=== PATIENT | female | born 1945 | race Caucasian/White ===

== ENCOUNTER → 2016-10-25 | Outpatient (CLI) | payer OTHER ==
[~2016-10-25] MED LIST: AMBEREN PO; ARIMIDEX PO; ASPIRIN EC81 M1 PO; BENADRYL25 MG PO; CALCITONIN NASAL; CALCITONIN-SALMON NASAL; CALCIUM 600 +1 EAC1 PO; FEXOFENADINE H180 MG PO; FLORINEF ACETA0.1 MG PO; LIPITOR 10 MG10 M1 PO; LOPRESSOR25 PO; MIACALCIN; MULTIVITAMINS PO; OMEPRAZOLE; PERCOCET 5-3251 EACH PO; ZANTAC
--- NOTE | ~2016-10-25 | 2DMMODE ---
[facility] [place] [address] 2 D/M-MODE ECHOCARDIOGRAM Name: JH BULL Room #: REG [facility]#: [id number] Admission: 10/25/16 Attend Phys: Diego Martinez MD Discharge: Date of : 45 Date of Service: 10/25/16 [facility] Report #: [id number] THIS REPORT FOR: //name// APPROVED REPORT Study performed: 10/25/2016 08:03:56 EXAM: Comprehensive 2D, Doppler, and color-flow Echocardiogram Patient Location: Out-Patient Room #: Echo lab Status: routine Other Information Study Quality: Good Risk Factors: Cardiac Risk Factors: Hyperlipidemia Indications CAD HLP, History of SVT. 2D Dimensions LVEF(%): 53.71 (>50%) IVSd: 9.60 (7-11mm) LVOT Diam: 16.94 (18-24mm) LVDd: 43.65 mm PWd: 10.76 (7-11mm) Ascending Ao: 32.32 (22-36mm) LVDs: 31.64 (25-40mm) Aortic Root: 32.02 mm IVC: 12.00 mm Mondragon's LVEF: 53.71 % Volumes Left Atrial Volume (Systole) Single Plane 4CH: 40.01 mL Single Plane 2CH: 32.15 mL LA ESV Index: 20.00 mL/m2 Aortic Valve AoV Peak Bj.: 1.37 m/s AO Peak Gr.: 7.52 mmHg LVOT Max P.89 mmHg LVOT Max V: 0.99 m/s ALLISON Vmax: 1.62 cm2 Mitral Valve E/A Ratio: 0.7 MV Decel. Time: 323.59 ms [facility] [email or web address] [place] [address] 2 D/M-MODE ECHOCARDIOGRAM Name: JH BULL Room #: [facility]#: [id number] Admission: 10/25/16 Attend Phys: Diego Martinez MD Discharge: Date of : 45 Date of Service: 10/25/16 1024 Report #: [id number] E Max Bj.: 0.43 m/s MV A Bj.: 0.64 m/s MV PHT: 93.84 ms IVRT: 152.25 ms Pulmonary Valve PV Peak Bj.: 0.73 m/s PV Peak Gr.: 2.11 mmHg Pulmonary Vein P Vein S: 0.51 m/s P Vein A: 0.28 m/s P Vein D: 0.32 m/s P Vein A Dur.: 92.3 msec P Vein S/D Ratio: 1.59 Tricuspid Valve RAP Estimate: 5.00 mmHg Left Ventricle The left ventricle is normal size. There is normal left ventricular wall thickness. The left ventricular systolic function is normal. The left ventricular ejection fraction is within the normal range. LVEF is 55-60%. Grade I - abnormal relaxation pattern. Right Ventricle The right ventricle is normal size. The right ventricular systolic function is normal. Atria The left atrium size is normal. The right atrium size is normal. Aortic Valve The aortic valve is normal in structure. Mild aortic regurgitation. There is no aortic valvular stenosis. Mitral Valve The mitral valve is normal in structure. Mild mitral regurgitation. No evidence of mitral valve stenosis. Tricuspid Valve The tricuspid valve is normal in structure. There is no tricuspid valve regurgitation noted. Pulmonic Valve The pulmonary valve is normal in structure. Trace pulmonic regurgitation. [facility] [address] [place] [address] 2 D/M-MODE ECHOCARDIOGRAM Name: JH BULL Room #: REG [facility]#: [id number] Admission: 10/25/16 Attend Phys: Diego Martinez MD Discharge: Date of : 45 Date of Service: 10/25/16 1024 Report #: [id number] Great Vessels The aortic root is normal in size. IVC is normal in size and collapses >50% with inspiration. Pericardium There is no pericardial effusion. <Conclusion> The left ventricle is normal size. The left ventricular systolic function is normal. The right ventricle is normal size. The left atrium size is normal. Mild aortic regurgitation. Mild mitral regurgitation. There is no pericardial effusion. <ELECTRONICALLY SIGNED> By: Diego Martinez MD 10/25/16 1024 1024 1024 Diego Martinez MD /INF
== END ==
LOC: CV 10-11 14:06
DX: I25.10 Atherosclerotic heart disease of native coronary artery without angina pectoris (principal); E78.5 Hyperlipidemia, unspecified

== ENCOUNTER → 2017-01-14 | Outpatient (CLI) | payer OTHER | LOC: RAD 04:07 | DX: Z12.31 Encounter for screening mammogram for malignant neoplasm of breast (principal) ==

== ENCOUNTER 2017-07-01 13:23 | Inpatient (IN) | payer OTHER ==
[~2017-07-01] VITALS: Ht 167.6 cm; Wt 86.2 kg
--- NOTE | ~2017-07-01 | EKG ---
[address] [place] [address] ELECTROCARDIOGRAM REPORT Name: JH BULL Room #: 204-P ADM IN M.R.#: [id number] Admission: 07/01/17 Attend Phys: Chauncey Woods DO Discharge: Date of : 45 Report #: [id number] THIS REPORT FOR: //name// [facility] ED Test Date: 2017-07-01 Test Time: 13:28:08 Pat Name: JH BULL Department: Room: 204 Gender: F Enterprise Sales Person: NATALIE : 1945 Requested By: Vivian Stern Order Number: [id number] MD: David Burns Measurements Intervals [place] Rate: 71 P: 29 CO: 176 QRS: 35 QRSD: 82 T: 12 QT: 399 QTc: 434 Interpretive Statements Sinus rhythm Compared to ECG 06/15/2012 17:56:56 No significant changes Electronically Signed On 07-02-2017 13:21:30 GROUP FITNESS ASSISTANT DEPARTMENT HEAD by David Burns [email or web address] <ELECTRONICALLY SIGNED> By: David Burns MD 07/02/17 1321 1328 27 David Burns MD /SADE
--- NOTE | ~2017-07-01 | CATHLAB ---
[facility] [address] [place] [address] INVASIVE PROCEDURE REPORT Name: JH BULL Room #: 204-P [facility] IN ..#: [id number] Admission: 07/01/17 Attend Phys: Chauncey Woods, Discharge: 07/03/17 Date of : 45 Date of Service: 07/04/17 0840 Report #: [id number] THIS REPORT FOR: //name// APPROVED REPORT Patient Details Patient Status: In-Patient Room #: The patient is a 71 year-old female Event Personnel Jaqueline Henning, Haris, Williams RN RN, Kirti Pollock RN RN, Annette Vargas Park, Jin Procurement Officer Procedures Performed Art Access - R femoral artery* Left Heart Cath w/or w/o Coronaries [id number] [facility] Hemostasis with Manual pressure 00403 Initial Mod Sed Same Phys/QHP Gr5y 198548 Indication Non-STEMI , Arrhythmia, Palpitations, Dyspnea, Chest pain Risk Factors Hypercholesterolemia, Coronary Artery DiseaseHypertension Procedure Narrative The patient was brought urgently to the Cardiac Catheterization Laboratory and was prepped and draped in a sterile manner. The Right Groin^ was infiltrated with 1% Lidocaine subcutaneous anesthesia. A PINNACLE 4FR Sheath #[id number] sheath was inserted into the RFA 4F^. Coronary angiography was performed using coronary diagnostic catheters. The right coronary system was accessed and visualized with a JR 4 catheter. The left coronary system was accessed and visualized with a JL 4 catheter. The left ventricle was accessed and visualized with a Pigtail catheter. Left ventricular/Aortic Valve gradient assessed via catheter pullback. Left ventriculogram was performed in JAIN projection. Hemostasis was obtained with manual pressure following sheath removal without any complications. The patient tolerated the procedure well and there were no complications associated with the procedure. There was no hematoma. Intraoperative Conscious Sedation Sedation start time: 09:09 Case end Time: : Fentanyl 25 mcg Versed [address] [address] INVASIVE PROCEDURE REPORT Name: JH BULL Room #: 204-P [facility] IN ..#: [id number] Admission: 07/01/17 Attend Phys: Chauncey Woods, Discharge: 07/03/17 Date of : 45 Date of Service: 07/04/17 0840 Report #: [id number] Fluoro Time: 1.53 minutes Dose: DAP 2464.50 cGycm2 313 mGy Contrast Type and Amount: Omnipaque 60 ml Coronary Angiography The patient's coronary anatomy is right dominant. Diagnostic Cath Left Main Large-caliber vessel, with no flow-limiting lesions. LAD Moderate size caliber vessel in the proximal segment with mild calcification. Mild disease is noted with a 30% stenosis. The mid and distal segments of the LAD artery tapers down to a small size caliber vessel. There is mild disease in the mid segment, 30%. Diagonal 1 Patent vessel, with no flow-limiting lesions. Circumflex Moderate size caliber vessel, supplies 2 obtuse marginal arteries. The proximal segment is mildly ectatic. OM1 Patent vessel, with no flow-limiting lesions. OM2 Patent vessel, with no flow-limiting lesions. Right Coronary Dominant vessel with a mild to moderate stenosis in the proximal segment, 30-40%. R PDA Patent vessel, with no flow-limiting lesions. RPLV Patent vessel, with no flow-limiting lesions. Left Ventriculography The left ventricle is normal in size with normal contractility. The left ventricular ejection fraction is estimated to be 55-60%. Hemodynamics The aortic pressure is 109/67 mmHg with a mean of 89 mmHg. The left ventricular pressure is 128/14 mmHg with a mean of mmHg. The left ventricular end diastolic pressure is 31 mmHg. Conclusion 1. Mild to moderate disease in the LAD and RCA. 2. Right dominant system. 3. Normal LV systolic function. 4. Recommend medical therapy. <ELECTRONICALLY SIGNED> By: Diego Martinez MD 07/04/17839 9 9 Diego Martinez MD /INF
--- NOTE | ~2017-07-01 | 2DMMODE ---
[facility] [address] [address] 2 D/M-MODE ECHOCARDIOGRAM Name: JH BULL Caleb Room #: 204-P [facility] IN .#: [id number] Admission: 07/01/17 Attend Phys: Chauncey Woods, Discharge: Date of : 45 Date of Service: 07/03/17 1349 Report #: [id number] THIS REPORT FOR: //name// APPROVED REPORT Study performed: 07/02/2017 11:28:08 EXAM: Comprehensive 2D, Doppler, and color-flow Echocardiogram Patient Location: Bedside Room #: 204 Status: on-call BSA: 1.96 HR: 87 bpm BP: 117/74 mmHg Rhythm: NSR Other Information Study Quality: Adequate Indications Chest Pressure CAD Elevated Troponin 2D Dimensions LVEF(%): 65.00 (>50%) IVSd: 8.51 (7-11mm) LVOT Diam: 17.00 (18-24mm) LVDd: 44.71 mm PWd: 10.03 (7-11mm) Ascending Ao: 34.06 (22-36mm) LVDs: 32.09 (25-40mm) Aortic Root: 25.25 mm LV Single Plane 4CH: 72.18 % LV Single Plane 2CH: 65.07 % Mondragon's LVEF: 68.63 % Biplane EF: 68.7 % Volumes Left Atrial Volume (Systole) Single Plane 4CH: 46.06 mL Single Plane 2CH: 58.35 mL LA ESV Index: 29.00 mL/m2 Aortic Valve AoV Peak Bj.: 1.53 m/s AO Peak Gr.: 9.36 mmHg LVOT Max P.44 mmHg LVOT Max V: 1.05 m/s ALLISON Vmax: 1.55 cm2 [facility] [place] [address] 2 D/M-MODE ECHOCARDIOGRAM Name: JH BULL Room #: 204-P [facility] IN M.R.#: [id number] Admission: 07/01/17 Attend Phys: Chauncey Woods, Discharge: Date of : 45 Date of Service: 07/03/17 1349 Report #: [id number] Mitral Valve E/A Ratio: 1.6 MV Decel. Time: 337.24 ms MV E Max Bj.: 0.78 m/s MV A Bj.: 0.49 m/s MV PHT: 97.80 ms IVRT: 69.20 ms Pulmonary Valve PV Peak Bj.: 0.76 m/s PV Peak Gr.: 2.30 mmHg Pulmonary Vein P Vein S: 0.42 m/s P Vein A: 0.27 m/s P Vein D: 0.50 m/s P Vein A Dur.: 152.2 msec P Vein S/D Ratio: 0.84 Left Ventricle The left ventricle is normal size. There is normal LV segmental wall motion. There is normal left ventricular wall thickness. Left ventricular systolic function is normal. The left ventricular ejection fraction is within the normal range. LVEF is 60-65%. The left ventricular diastolic function is normal. Right Ventricle The right ventricle is normal size. The right ventricular systolic function is normal. Atria The left atrium size is normal. The right atrium size is normal. Aortic Valve The aortic valve is normal in structure. Mild aortic regurgitation. There is no aortic valvular stenosis. Mitral Valve The mitral valve is normal in structure. Mild mitral regurgitation. No evidence of mitral valve stenosis. Tricuspid Valve The tricuspid valve is normal in structure. There is no tricuspid valve regurgitation noted. Pulmonic Valve The pulmonary valve is normal in structure. Trace pulmonic [facility] [address] [place] [address] 2 D/M-MODE ECHOCARDIOGRAM Name: JH BULL Room #: 204-P [facility] IN [facility]#: [id number] Admission: 07/01/17 Attend Phys: Chauncey Woods, Discharge: Date of : 45 Date of Service: 07/03/17 1349 Report #: [id number] regurgitation. Great Vessels The aortic root is normal in size. IVC is normal in size and collapses with >50% inspiration Pericardium There is no pericardial effusion. <Conclusion> The left ventricle is normal size. LVEF is 60-65%. The left ventricular diastolic function is normal. The right ventricle is normal size. The left atrium size is normal. The aortic valve is normal in structure. Mild mitral regurgitation. There is no tricuspid valve regurgitation noted. IVC is normal in size and collapses with >50% inspiration There is no pericardial effusion. <ELECTRONICALLY SIGNED> By: Jesus Claros MD, FACC 07/03/17 1349 1349 1349 Jesus Claros MD, FACC /INF
--- NOTE | ~2017-07-01 | HC ---
[facility] [place] [address] CONSULTATION Name: JH BULL Room #: 204-P [facility] IN M.R.#: [id number] Admission: 07/01/17 Attend Phys: Chauncey Woods DO Discharge: 07/03/17 Date of : 45 Report #: [id number] THIS REPORT FOR: //name// CC: Chauncey Fernandes REASON FOR CONSULTATION: SVT. HISTORY OF PRESENT ILLNESS: The patient is a 71-year-old with a history of SVT and vasovagal syncope and nonobstructive coronary artery disease who was at [facility] and started having SVT. Her heart rate was very rapid, she could not take her pulse. She then called an ambulance from home and they brought her in. By that time, she was in sinus rhythm. She was noted to have an elevated troponin and therefore, Dr. Martinez took her for cardiac catheterization, which showed some nonobstructive disease and no interventions were performed. The patient reports she has been having increased episodes of SVT. I did review a 12-lead EKG from the medical record that clearly shows supraventricular tachycardia with no discernible P waves consistent with AV nova reentrant tachycardia. Her resting EKG shows normal sinus rhythm with no manifest of preexcitation. PAST MEDICAL HISTORY: As above. SOCIAL HISTORY: Does not smoke. FAMILY HISTORY: Noncontributory. ALLERGIES: None. REVIEW OF SYSTEMS: A 12-point review of systems was performed and was negative other than what I mentioned above. PHYSICAL EXAMINATION: VITAL SIGNS: Temperature 36.6, pulse 55, respiration 18, blood pressure 107/71, sats 97%. GENERAL: No acute distress. HEENT: Oropharynx clear. NECK: Supple, no thyromegaly. HEART: Regular rate and rhythm with no murmurs, rubs or gallops. LUNGS: Clear to auscultation bilaterally. ABDOMEN: Soft, nontender, nondistended with no hepatosplenomegaly. EXTREMITIES: There is no clubbing, cyanosis or edema. NEUROLOGIC: Cranial nerves 2-12 are intact. LABORATORY DATA: White count 3.1, hemoglobin 13, platelets 192. Chemistries: Sodium 139, potassium 3.7, BUN 13, creatinine 0.6. Troponin was initially 0.2, increased to 2.6 and today is 1.0. EKG shows no ischemic changes. Chest x-ray [address] [address] CONSULTATION Name: JH BULL Room #: 204-P [facility] IN [facility]#: [id number] Admission: 07/01/17 Attend Phys: Chauncey Woods DO Discharge: 07/03/17 Date of : 45 Report #: [id number] shows no acute process. IMPRESSION: 1. Supraventricular tachycardia. 2. Elevated troponin secondary to supraventricular tachycardia. PLAN: The patient has evidence of documented supraventricular tachycardia. She has failed medications. I have recommended that she undergo SVT ablation. We discussed the details of the procedure including the risks, which include but not limited to bleeding, vascular damage, cardiac perforation, stroke and ME. She understands these risks and is willing to proceed. We will call her at home to schedule this. She will need to hold her beta blockers 48 hours prior to the procedure. <ELECTRONICALLY SIGNED> By: David Burns MD 07/15/17 1749 1234 1821 David Burns MD /nt
--- NOTE | ~2017-07-01 | HC ---
[facility] [place] [address] CONSULTATION Name: JH BULL Room #: 204-P [facility] IN ..#: [id number] Admission: 07/01/17 Attend Phys: Chauncey Woods DO Discharge: 07/03/17 Date of : 45 Report #: [id number] THIS REPORT FOR: //name// CC: Chauncey Fernandes DATE OF SERVICE: 07/02/2017 INDICATION: Positive troponin. HISTORY OF PRESENT ILLNESS: This is a 71-year-old female presenting with an episode of shortness of breath, chest discomfort and palpitations. She was walking for about 20 minutes when she developed these symptoms. EMS arrived and noted an SVT. She tried vagal maneuvers without any success. In the ambulance, she belched and the rhythm converted to sinus. The peak troponin is 2.6. The patient has a prior history of SVT, has not had an episode in several years. She also has known coronary artery disease, had a borderline stenosis in the mid LAD 5 years ago. The FFR was negative and she was treated medically. CAD with a 60% stenosis in the mid LAD in 2012. Echo from 2017 revealed normal LV systolic function, mild MR and mild AI. History of neurocardiogenic syncope, on Florinef. Hypertension, hypercholesterolemia, previous breast cancer. MEDICATIONS: Include Lipitor 20 mg daily, atenolol 50 mg daily, aspirin once a day, calcitonin spray, Florinef 0.1 mg twice a week. ALLERGIES: None. SOCIAL HISTORY: Negative for tobacco use. FAMILY HISTORY: Negative for premature CAD. REVIEW OF SYSTEMS: A full 10-point review of systems performed. Only the pertinent positives and negatives are described in the HPI. PHYSICAL EXAMINATION: VITAL SIGNS: Blood pressure is 110/60, heart rate is 60 beats per minute. GENERAL APPEARANCE: A well-developed, well-nourished female in no acute respiratory distress. HEAD AND EYES: Normocephalic. Sclerae are anicteric. ENT: Oral mucosa moist. NECK: Supple. LUNGS: Clear to auscultation. CARDIAC: Regular rate and rhythm, S1, S2 positive. [facility] [address] [place] [address] CONSULTATION Name: JH BULL Caleb Room #: 204-P DIS IN M.R.#: [id number] Admission: 07/01/17 Attend Phys: Chauncey Woods DO Discharge: 07/03/17 Date of : 45 Report #: [id number] ABDOMEN: Soft, nontender. EXTREMITIES: No cyanosis, no edema. DIAGNOSTIC DATA: ECG reveals sinus rhythm. LABORATORY VALUES: Peak troponin is 2.6. Sodium is 141, creatinine is 0.8. White count is 3.3, hemoglobin is 13.4. ASSESSMENT AND PLAN: 1. Non-ST elevation myocardial infarction, unclear if the initial event was ischemia resulting in supraventricular tachycardia or vice versa. She has a known coronary artery disease. I discussed with her the overall risks and benefits of medical therapy versus cardiac catheterization. The patient understands and wishes to proceed with a coronary angiogram. 2. Supraventricular tachycardia. Has not had an episode like this in several years. She has been stable on atenolol. We will follow for now. May require an EP evaluation. 3. Hypertension, stable on low dose beta sami. 4. History of neurocardiogenic syncope, on Florinef twice a week. 5. Hypercholesterolemia, continue with statin therapy. <ELECTRONICALLY SIGNED> By: Diego Martinez MD 07/05/17 0835 0843 1904 Diego Martinez MD /nt
[2017-07-01 13:24] VITALS: BP 75/43
[2017-07-01 14:22] LABS: ABSOLUTE NEUTROPHILS 4.3 thou/uL (1.4-8.2); BASOPHILS 0.2 % (0.0-2.0); HEMATOCRIT 36.6 % (37.0-47.0); HEMOGLOBIN 12.3 gm/dL (12.0-15.0); MCH 31.8 pg (26.0-34.0); MCHC 33.8 g/dL (28.0-37.0); PLATELET COUNT 181 thou/uL (150-400); POLYS 85.8 % (36.0-66.0); RBC 3.89 mil/uL (4.20-5.00); RDW 12.6 % (10.5-14.5); WBC 5.1 thou/uL (4.0-11.0)
[2017-07-01 14:38] LABS: CALCIUM 8.4 mg/dL (8.5-10.1); CREATININE 1.2 mg/dL (0.6-1.0); POTASSIUM 3.6 mmol/L (3.5-5.1)
[2017-07-01 14:48] LABS: TROPONIN-I 0.22 ng/mL (<0.06)
[2017-07-01] MEDS ORDERED: ATENOLOL 50MG T50 M1 PO (14:51)
[2017-07-01 17:40] VITALS: BP 120/83
[2017-07-01 18:17] VITALS: BP 117/67
[2017-07-01 18:34] VITALS: BP 122/78
[2017-07-01 19:00] VITALS: BP 111/69
[2017-07-02 00:10] VITALS: BP 102/65
[2017-07-02 04:00] VITALS: BP 98/60
[2017-07-02 06:09] LABS: ABSOLUTE NEUTROPHILS 2.1 thou/uL (1.4-8.2); BASOPHILS 0.9 % (0.0-2.0); HEMOGLOBIN 13.4 gm/dL (12.0-15.0); LYMPHOCYTES 23.6 % (24.0-44.0); MCH 31.6 pg (26.0-34.0); MCHC 34.4 g/dL (28.0-37.0); MCV 92.1 fL (80.0-100.0); MONOCYTES 11.9 % (1.0-8.0); PLATELET COUNT 218 thou/uL (150-400); POLYS 63.6 % (36.0-66.0); RBC 4.23 mil/uL (4.20-5.00); RDW 12.7 % (10.5-14.5); WBC 3.3 thou/uL (4.0-11.0)
[2017-07-02 07:39] LABS: CALCIUM 9.3 mg/dL (8.5-10.1); CREATININE 0.8 mg/dL (0.6-1.0); POTASSIUM 4.3 mmol/L (3.5-5.1)
[2017-07-02 07:45] LABS: TROPONIN-I 2.6 ng/mL (<0.06)
[2017-07-02 10:00] VITALS: BP 117/82
[2017-07-02 11:09] VITALS: BP 117/74
[2017-07-02 15:03] VITALS: BP 86/58
[2017-07-02 20:10] VITALS: BP 131/71
[2017-07-03 00:38] VITALS: BP 122/75
[2017-07-03 03:43] LABS: HEMATOCRIT 38.2 % (37.0-47.0); MCH 31.6 pg (26.0-34.0); RBC 4.11 mil/uL (4.20-5.00); RDW 12.7 % (10.5-14.5); WBC 3.1 thou/uL (4.0-11.0)
[2017-07-03 03:52] LABS: CALCIUM 8.8 mg/dL (8.5-10.1); CREATININE 0.6 mg/dL (0.6-1.0); POTASSIUM 3.7 mmol/L (3.5-5.1)
[2017-07-03 04:45] VITALS: BP 126/68
[2017-07-03 07:15] VITALS: BP 107/71
[2017-07-03 11:20] VITALS: BP 106/67
[2017-07-03 13:25] VITALS: BP 107/71
== END 2017-07-03 14:51 | disposition home or self-care (01) | DRG 286 ==
LOC: ER 13:23 → EROBS 17:12 → 3W 18:29 → 2N 07-02 09:25
PROVIDERS: Emergency Medicine; Family Medicine; Internal Medicine Cardiovascular Disease
PROC: B2151ZZ Fluoroscopy of Left Heart using Low Osmolar Contrast (ICD-10-PCS; principal; 2017-07-03)
PROC: 4A023N7 Measurement of Cardiac Sampling and Pressure, Left Heart, Percutaneous Approach (ICD-10-PCS; principal; 2017-07-03)
PROC: B2111ZZ Fluoroscopy of Multiple Coronary Arteries using Low Osmolar Contrast (ICD-10-PCS; principal; 2017-07-03)
DX: I47.1 Supraventricular tachycardia (principal); N17.0 Acute kidney failure with tubular necrosis; I25.10 Atherosclerotic heart disease of native coronary artery without angina pectoris; I10 Essential (primary) hypertension; E78.00 Pure hypercholesterolemia, unspecified; Z79.82 Long term (current) use of aspirin; Z79.899 Other long term (current) drug therapy; Z85.3 Personal history of malignant neoplasm of breast
CPT/HCPCS: 10081; 10879

== ENCOUNTER 2017-07-11 06:33 | Observation (INO) | payer OTHER ==
[~2017-07-11] VITALS: Ht 170.2 cm; Wt 88.5 kg
--- NOTE | ~2017-07-11 | P ---
[facility] [place] [address] PROCEDURE REPORT Name: JH BULL Room #: 211-P [facility] Khoi M.RNithin#: [id number] Admission: 07/11/17 Attend Phys: David Burns MD Discharge: 07/12/17 Date of : 45 Report #: [id number] THIS REPORT FOR: //name// CC: Diego Fernandes PREOPERATIVE DIAGNOSIS: Supraventricular tachycardia. POSTOPERATIVE DIAGNOSES: Typical atrioventricular nova reentrant tachycardia. PROCEDURES PERFORMED: 1. SVT ablation, CPT code 48717. 2. EP left atrial pacing and recording, CPT code 02946. 3. 3D mapping, CPT code 73759. HISTORY OF PRESENT ILLNESS: The patient is a 71-year-old with a longstanding history of SVT, recently admitted to the hospital with recurrence, who is here for an ablation. ANESTHESIA: The patient underwent MAC anesthesia with no anesthesia related complications. PROCEDURE: The patient underwent informed consent. We discussed the details of the procedure including the risks, which include but not limited to bleeding, vascular damage, cardiac perforation, stroke, AL as well as damage to the chehalis conduction system requiring permanent pacemaker. She understood these risks and is willing to proceed. She is brought to the EP Laboratory in a fasting and sedated state and prepped and draped in a sterile fashion. I injected lidocaine to the bilateral groin regions and obtained access to the bilateral femoral veins placing sheaths using the modified Seldinger technique in the right femoral vein and placed an 8 and 6-Rwandan short sheath in the left femoral vein. I placed a 6 and 7-Rwandan short sheath under fluoroscopy. I placed 3 quadripolar catheters at the HRA, His and RV positions and a decapolar catheter easily in the coronary sinus. At baseline, the patient was in sinus rhythm with sinus cycle length of 960 milliseconds, VA interval 160 milliseconds, QRS duration 75 milliseconds, QT interval 410 milliseconds, AH interval 96 milliseconds, and HV interval 40 milliseconds. Atrial burst pacing was performed and AV block was noted at 300 milliseconds. There was evidence of a long AH interval. Next, atrial extrastimuli were delivered and atrial ERP was noted at 290 milliseconds at [address] cycle length. SVT was very easily inducible with either atrial burst pacing or single or double atrial extrastimuli. SVT was induced with a tachycardia cycle length of 370 milliseconds, septal VA time of 35 milliseconds and ventricular entrainment demonstrated VAHV response consistent [facility] [address] [place] [address] PROCEDURE REPORT Name: JH BULL Room #: 211-P [facility] Khoi Gonzalez.RNithin#: [id number] Admission: 07/11/17 Attend Phys: David Burns MD Discharge: 07/12/17 Date of : 45 Report #: [id number] with typical AV nova reentrant tachycardia. Ventricular pacing was performed. VA block was noted at 330 milliseconds. Ventricular ERP was noted 270 milliseconds at a [address] cycle length with VA conduction that was both midline and decremental. 3D mapping and ablation: Next a detailed 3D geometry of the right atrium with specific emphasis of the His bundle and slow pathway region was performed. Ablation was performed via a SR0 sheath utilizing a 4-mm Biosense Leija ablation catheter and ablation was performed at 50 gregg and 55 degrees. I performed a total of 5 ablation lesions, all demonstrating nice slow junctional rhythm that was never compromised to her conduction. Post-ablation, AV block was noted at 400 milliseconds. There was no longer this long AH interval likely previously demonstrated. AV nova ERP was noted at 380 milliseconds at a [address] cycle length. There were rare single AV nova echoes. VA block was noted at 340 milliseconds. Ventricular ERP was noted at 200 milliseconds at a [address] cycle length. We tested for approximately 30 minutes post-ablation and the patient no longer had inducible arrhythmias. Post-ablation, the patient was in sinus rhythm with sinus cycle length of 850 milliseconds, VA interval 185 milliseconds, QRS duration 76 milliseconds, QT interval 390 milliseconds, AH interval 100 milliseconds, and HV interval of 42 milliseconds. As such, all catheters and sheaths were pulled. Hemostasis was obtained and the patient awoke neurologically and hemodynamically intact with no complications and no significant bleeding. CONCLUSIONS: 1. Successful ablation of typical AV nova reentrant tachycardia. 2. Normal SA nova function. 3. Normal AV nova function. 4. Normal His-Purkinje function. 5. No other inducible arrhythmias. By: [id number] [id number] David Burns MD /nt
--- NOTE | ~2017-07-11 | EKG ---
[address] [address] ELECTROCARDIOGRAM REPORT Name: JH BULL Room #: 211-P [facility]#: [id number] Admission: 07/11/17 Attend Phys: David Burns MD Discharge: 07/12/17 Date of : 45 Report #: [id number] THIS REPORT FOR: //name// [facility] Test Date: 2017-07-11 Test Time: 07:03:18 Pat Name: JH BULL Department: Room: [facility] Gender: F [employer] Director: Rosario MILAN : 1945 Requested By: David Burns Order Number: [id number] MD: Jesus Mccarthy Measurements Intervals Carney Rate: 57 P: 34 MT: 174 QRS: 22 QRSD: 87 T: 11 QT: 439 QTc: 428 Interpretive Statements Sinus bradycardia Nonspecific ST segment abnormality Compared to ECG 07/01/2017 13:28:08 No significant changes Electronically Signed On 07-12-2017 13:14:44 CDT by Jesus Mccarthy [email or web address] <ELECTRONICALLY SIGNED> By: Jesus Mccarthy MD, [facility] 07/12/17 1314 [phone] Jesus Mccarthy MD, [facility] /EPI
[~2017-07-11 06:33] MED LIST changes: +ATENOLOL 50MG T50 M1 PO
[2017-07-11] MEDS ORDERED: VITAMIN D1000 UNI1 PO (07:25)
[2017-07-11 07:34] VITALS: BP 105/70
[2017-07-11 07:49] LABS: HEMATOCRIT 38.5 % (37.0-47.0); HEMOGLOBIN 13.2 gm/dL (12.0-15.0); MCH 31.7 pg (26.0-34.0); MCHC 34.4 g/dL (28.0-37.0); PLATELET COUNT 195 thou/uL (150-400); RBC 4.18 mil/uL (4.20-5.00); RDW 12.6 % (10.5-14.5); WBC 2.4 thou/uL (4.0-11.0)
[2017-07-11 07:53] LABS: CREATININE 0.8 mg/dL (0.6-1.0); POTASSIUM 3.7 mmol/L (3.5-5.1)
[2017-07-11 07:57] LABS: APTT 24.7 Seconds (24.5-32.8); PROTIME 10.4 Seconds (9.3-11.4)
[2017-07-11 07:59] LABS: ALBUMIN 3.6 g/dL (3.4-5.0); TOTAL BILIRUBIN 0.3 mg/dL (<0.1-1.0); TOTAL PROTEIN 6.5 g/dL (6.4-8.2)
[2017-07-11 08:26] LABS: ABSOLUTE NEUTROPHILS 1.4 thou/uL (1.4-8.2)
[2017-07-11 19:22] VITALS: BP 82/54
[2017-07-12 00:03] VITALS: BP 81/46
[2017-07-12 04:09] VITALS: BP 113/54
[2017-07-12 08:29] VITALS: BP 116/73
[2017-07-12 11:50] VITALS: BP 116/73
== END 2017-07-12 12:10 | disposition home or self-care (01) ==
LOC: CATH 06:33 → 2N 08:36
PROVIDERS: Internal Medicine Cardiovascular Disease
DX: I47.1 Supraventricular tachycardia (principal)
CPT/HCPCS: 62110; 62900; 70005

== ENCOUNTER → 2018-03-06 | Outpatient (CLI) | payer OTHER ==
[~2018-03-06] MED LIST changes: +VITAMIN D1000 UNI1 PO
--- NOTE | ~2018-03-06 | 2DMMODE ---
[facility] [place] [address] 2 D/M-MODE ECHOCARDIOGRAM Name: JH BULL Room #: [facility]#: [id number] Admission: 03/06/18 Attend Phys: Diego Martinez MD Discharge: Date of : 45 Date of Service: 03/06/18 1159 Report #: [id number] THIS REPORT FOR: //name// APPROVED REPORT Study performed: 03/06/2018 11:24:37 EXAM: Comprehensive 2D, Doppler, and color-flow Echocardiogram Patient Location: Out-Patient Status: routine BSA: 2.00 HR: 68 bpm BP: 117/74 mmHg Rhythm: NSR Other Information Study Quality: Adequate Indications Palpitations, CAD, SVT ablation. 2D Dimensions RVDd: 33.46 mm IVSd: 10.74 (7-11mm) LVOT Diam: 20.26 (18-24mm) LVDd: 42.29 mm PWd: 10.60 (7-11mm) Ascending Ao: 36.78 (22-36mm) LVDs: 27.09 (25-40mm) Aortic Root: 35.01 mm Volumes Left Atrial Volume (Systole) Single Plane 4CH: 31.77 mL Single Plane 2CH: 49.40 mL LA ESV Index: 22.00 mL/m2 Aortic Valve AoV Peak Bj.: 1.47 m/s AO Peak Gr.: 8.59 mmHg LVOT Max P.16 mmHg LVOT Max V: 1.02 m/s ALLISON Vmax: 2.24 cm2 Mitral Valve E/A Ratio: 0.8 MV Decel. Time: 285.23 ms MV E Max Bj.: 0.50 m/s [facility] [address] [place] [address] 2 D/M-MODE ECHOCARDIOGRAM Name: JH BULL Room #: [facility]#: [id number] Admission: 03/06/18 Attend Phys: Diego Martinez MD Discharge: Date of : 45 Date of Service: 03/06/18 1159 Report #: [id number] A Bj.: 0.59 m/s MV PHT: 82.72 ms IVRT: 96.89 ms Pulmonary Valve PV Peak Bj.: 0.77 m/s PV Peak Gr.: 2.35 mmHg Tricuspid Valve TR Peak Bj.: 2.04 m/s RAP Estimate: 5.00 mmHg TR Peak Gr.: 16.70 mmHg PA Pressure: 22.00 mmHg Left Ventricle The left ventricle is normal size. There is normal LV segmental wall motion. There is normal left ventricular wall thickness. Left ventricular systolic function is normal. LVEF is 60-65%. Mild diastolic dysfunction is present (impaired relaxation pattern). Right Ventricle The right ventricle is normal size. The right ventricular systolic function is normal. Atria The left atrium size is normal. The right atrium size is normal. Aortic Valve Aortic valve is mildly calcified. Mild aortic regurgitation. There is no aortic valvular stenosis. Mitral Valve The mitral valve is normal in structure. Mild mitral regurgitation. Tricuspid Valve The tricuspid valve is normal in structure. Trace tricuspid regurgitation. Estimated PAP is 20-25mmHg. Pulmonic Valve The pulmonary valve is normal in structure. Trace pulmonic regurgitation. Great Vessels The aortic root is normal in size. The ascending aorta is normal in size. IVC is normal in size and collapses >50% with [facility] [address] [place] [address] 2 D/M-MODE ECHOCARDIOGRAM Name: JH BULL Room #: [facility]#: [id number] Admission: 03/06/18 Attend Phys: Diego Martinez MD Discharge: Date of : 45 Date of Service: 03/06/18 1159 Report #: [id number] inspiration. Pericardium There is no pericardial effusion. <Conclusion> The left ventricle is normal size. There is normal left ventricular wall thickness. Left ventricular systolic function is normal. Mild diastolic dysfunction is present (impaired relaxation pattern). The right ventricle is normal size. The left atrium size is normal. Aortic valve is mildly calcified. Mild aortic regurgitation. Mild mitral regurgitation. Trace tricuspid regurgitation. Estimated PAP is 20-25mmHg. <ELECTRONICALLY SIGNED> By: Diego Martinez MD 03/06/18 1159 1159 1159 Diego Martinez MD /INF
== END ==
LOC: CV 07:37
DX: I08.0 Rheumatic disorders of both mitral and aortic valves (principal); I25.10 Atherosclerotic heart disease of native coronary artery without angina pectoris; I47.1 Supraventricular tachycardia

== ENCOUNTER → 2019-01-17 | Outpatient (CLI) | payer OTHER | LOC: RAD 01:18 | DX: Z12.31 Encounter for screening mammogram for malignant neoplasm of breast (principal) ==

== ENCOUNTER → 2019-03-12 | Outpatient (CLI) | payer OTHER ==
--- NOTE | 2019-03-12 14:26 | 2DMMODE ---
[facility] [address] [place] [address] 2 D/M-MODE ECHOCARDIOGRAM Name: JH BULL Room #: REG [facility]#: [id number] Admission: 03/12/19 Attend Phys: Diego Martinez MD Discharge: Date of : 45 Report #: [id number] THIS REPORT FOR: //name// APPROVED REPORT Study performed: 03/12/2019 13:40:47 EXAM: Comprehensive 2D, Doppler, and color-flow Echocardiogram Patient Location: Echo lab Status: routine BSA: 2.00 HR: 75 bpm BP: 158/72 mmHg Rhythm: NSR Other Information Study Quality: Adequate Technically limited study due to patient left-sided tenderness due to recent lumpectomy. Indications CAD Hx SVT ablation 2D Dimensions RVDd: 37.71 mm IVSd: 10.81 (7-11mm) LVOT Diam: 19.77 (18-24mm) LVDd: 43.08 mm PWd: 9.43 (7-11mm) Ascending Ao: 32.88 (22-36mm) LVDs: 34.43 (25-40mm) Aortic Root: 32.28 mm IVC: 12.00 mm Volumes Left Atrial Volume (Systole) Single Plane 4CH: 43.14 mL Single Plane 2CH: 40.13 mL LA ESV Index: 24.00 mL/m2 Aortic Valve AoV Peak Bj.: 1.69 m/s AO Peak Gr.: 11.38 mmHg LVOT Max P.20 mmHg LVOT Max V: 1.25 m/s ALLISON Vmax: 2.26 cm2 Mitral Valve [facility] [address] [place] [address] 2 D/M-MODE ECHOCARDIOGRAM Name: JH BULL Room #: REG [facility]#: [id number] Admission: 03/12/19 Attend Phys: Diego Martinez MD Discharge: Date of : 45 Report #: [id number] E/A Ratio: 0.9 MV Decel. Time: 267.80 ms MV E Max Bj.: 0.61 m/s MV A Bj.: 0.70 m/s MV PHT: 77.66 ms IVRT: 114.19 ms Pulmonary Valve PV Peak Bj.: 0.90 m/s PV Peak Gr.: 3.27 mmHg Pulmonary Vein P Vein S: 0.70 m/s P Vein A: 0.35 m/s P Vein D: 0.47 m/s P Vein A Dur.: 138.4 msec P Vein S/D Ratio: 1.49 Tricuspid Valve TR Peak Bj.: 2.76 m/s RAP Estimate: 5.00 mmHg TR Peak Gr.: 30.51 mmHg PA Pressure: 36.00 mmHg Left Ventricle The left ventricle is normal size. There is normal left ventricular wall thickness. The left ventricular systolic function is normal. The left ventricular ejection fraction is within the normal range. LVEF is 60-65%. Mild diastolic dysfunction is present (impaired relaxation pattern). Right Ventricle The right ventricle is normal size. The right ventricular systolic function is normal. Atria The left atrium size is normal. Right atrium is at the upper limits of normal. Aortic Valve Aortic valve is mildly calcified. Trace aortic regurgitation. There is no aortic valvular stenosis. Mitral Valve The mitral valve is normal in structure. Trace to mild mitral regurgitation. No evidence of mitral valve stenosis. Tricuspid Valve The tricuspid valve is normal in structure. Trace tricuspid regurgitation. PAP is estimated at 36 mmHg. [facility] [email or web address] [address] 2 D/M-MODE ECHOCARDIOGRAM Name: JH BULL Room #: REG [facility]#: [id number] Admission: 03/12/19 Attend Phys: Diego Martinez MD Discharge: Date of : 45 Report #: [id number] Pulmonic Valve The pulmonary valve is normal in structure. Trace pulmonic regurgitation. Great Vessels The aortic root is normal in size. IVC is normal in size and collapses >50% with inspiration. Pericardium There is no pericardial effusion. <Conclusion> The left ventricle is normal size. There is normal left ventricular wall thickness. The left ventricular systolic function is normal. Mild diastolic dysfunction is present (impaired relaxation pattern). The right ventricle is normal size. The left atrium size is normal. Aortic valve is mildly calcified. Trace aortic regurgitation. Trace to mild mitral regurgitation. Trace tricuspid regurgitation. PAP is estimated at 36 mmHg. <ELECTRONICALLY SIGNED> By: Diego Martinez MD 03/12/19 1425 [id number] Diego Martinez MD /INF
== END ==
LOC: CV 13:17
DX: I34.0 Nonrheumatic mitral (valve) insufficiency (principal); I25.10 Atherosclerotic heart disease of native coronary artery without angina pectoris

== ENCOUNTER → 2020-01-30 | Outpatient (CLI) | payer OTHER | LOC: BC 09:03 | PROVIDERS: ATTEND Neuromusculoskeletal Medicine & OMM | DX: Z12.31 Encounter for screening mammogram for malignant neoplasm of breast (principal) ==

== ENCOUNTER → 2020-02-27 | Outpatient (CLI) | payer OTHER | LOC: RAD 13:15 | PROVIDERS: ATTEND Neuromusculoskeletal Medicine & OMM | DX: M85.88 Other specified disorders of bone density and structure, other site (principal); M81.0 Age-related osteoporosis without current pathological fracture ==

== ENCOUNTER → 2020-03-10 | Outpatient (CLI) | payer OTHER | LOC: CAT 14:13 | PROVIDERS: ATTEND Internal Medicine Cardiovascular Disease | DX: Z13.6 Encounter for screening for cardiovascular disorders (principal); I25.10 Atherosclerotic heart disease of native coronary artery without angina pectoris; E78.00 Pure hypercholesterolemia, unspecified ==

== ENCOUNTER → 2020-03-10 | Outpatient (CLI) | payer OTHER | LOC: SJCVC 13:25 | PROVIDERS: ATTEND Internal Medicine Cardiovascular Disease | DX: R94.31 Abnormal electrocardiogram [ECG] [EKG] (principal); I95.1 Orthostatic hypotension; R00.2 Palpitations; E78.00 Pure hypercholesterolemia, unspecified; Z79.899 Other long term (current) drug therapy ==

== ENCOUNTER → 2020-04-07 | Outpatient (CLI) | payer OTHER | LOC: SJCVC 10:02 | PROVIDERS: ATTEND Internal Medicine Cardiovascular Disease | DX: E78.00 Pure hypercholesterolemia, unspecified (principal); I25.10 Atherosclerotic heart disease of native coronary artery without angina pectoris; I10 Essential (primary) hypertension; Z68.31 Body mass index [BMI] 31.0-31.9, adult; E78.2 Mixed hyperlipidemia; Z79.82 Long term (current) use of aspirin; Z79.899 Other long term (current) drug therapy ==

== ENCOUNTER → 2021-01-30 | Outpatient (CLI) | payer OTHER | LOC: BC 10:00 | PROVIDERS: ATTEND Pediatrics | DX: Z12.31 Encounter for screening mammogram for malignant neoplasm of breast (principal) ==

== ENCOUNTER → 2021-03-10 | Outpatient (CLI) | payer OTHER | LOC: SJCVC 09:22 | PROVIDERS: ATTEND Internal Medicine Cardiovascular Disease | DX: R94.31 Abnormal electrocardiogram [ECG] [EKG] (principal); R93.1 Abnormal findings on diagnostic imaging of heart and coronary circulation; I47.1 Supraventricular tachycardia; I95.1 Orthostatic hypotension; I25.10 Atherosclerotic heart disease of native coronary artery without angina pectoris; E78.00 Pure hypercholesterolemia, unspecified; E78.5 Hyperlipidemia, unspecified; Z79.82 Long term (current) use of aspirin; Z79.899 Other long term (current) drug therapy; Z72.89 Other problems related to lifestyle ==

== ENCOUNTER → 2021-03-17 | Outpatient (CLI) | payer OTHER | LOC: SJCVCIMAG 08:32 | PROVIDERS: ATTEND Internal Medicine Cardiovascular Disease | DX: I49.3 Ventricular premature depolarization (principal); I25.10 Atherosclerotic heart disease of native coronary artery without angina pectoris; I47.1 Supraventricular tachycardia; I95.1 Orthostatic hypotension; E78.00 Pure hypercholesterolemia, unspecified; E78.5 Hyperlipidemia, unspecified; C50.912 Malignant neoplasm of unspecified site of left female breast; R06.00 Dyspnea, unspecified; Z79.82 Long term (current) use of aspirin; Z79.899 Other long term (current) drug therapy; Z72.89 Other problems related to lifestyle ==